=== PATIENT | female | born 1980 | race Two or more races ===

== ENCOUNTER 2024-08-02 00:52 | Inpatient (IN) | payer BC, OTHER ==
[~2024-08-02] VITALS: Ht 162.6 cm; Wt 72.6 kg
[2024-08-02] VITALS (19 sets, daily range): BP systolic 142–189; BP diastolic 56–108; TEMP 97.6; O2SAT 95–100
[2024-08-02] MEDS ORDERED: HYDROMORPHONE 1 MG/1 ML DISP.SYRIN ONE (02:15)
[2024-08-02] MEDS: HYDROMORPHONE 1 MG/1 ML DISP.SYRIN IV ONE ×2 (02:18→11:18)
[2024-08-02] MEDS: KETAMINE HCL(200MG/20ML) 10 MG/ML VIAL IV ONE (02:18)
[2024-08-02 02:32] LABS: BASOPHILS % (AUTO) 0.7 % (0.0-2.0); EOSINOPHILS # (AUTO) 0.1 K/uL (0.0-0.7); EOSINOPHILS % (AUTO) 1.1 % (0.0-6.0); HEMATOCRIT 38 % (33-45); HEMOGLOBIN 12.9 g/dL (11.5-14.8); LYMPHOCYTES # (AUTO) 0.8 K/uL (0.8-4.8); LYMPHOCYTES % (AUTO) 12.9 % (20.0-44.0); MEAN CORPUSCULAR HEMOGLOBIN 31 PG (26.0-33.0); MEAN CORPUSCULAR HGB CONC 34 g/dl (31.0-36.0); MEAN CORPUSCULAR VOLUME 93 fL (82-100); MONOCYTES # (AUTO) 0.5 K/uL (0.1-1.30); MONOCYTES % (AUTO) 7.5 % (2.0-12.0); NEUTROPHILS # (AUTO) 4.9 K/uL (1.8-8.9); NEUTROPHILS % (AUTO) 77.8 % (43.0-81.0); PLATELET COUNT (AUTO) 203 K/uL (150-450); RED BLOOD CELL COUNT(AUTO) 4.12 MIL/uL (4.0-5.2); RED CELL DISTRIBUTION WIDTH 17.6 % (11.5-15.0); WHITE BLOOD COUNT (AUTO) 6.3 K/uL (4.3-11.0)
[2024-08-02] MEDS ORDERED: CALCIUM CHLORIDE 1,000 MG/10 ML DISP.SYRIN ONE (03:20)
[2024-08-02] MEDS ORDERED: SODIUM BICARBONATE SYR 50 MEQ/50 ML DISP.SYRIN ONE (03:20)
[2024-08-02] MEDS ORDERED: DEXTROSE 50%-WATER 50 ML DISP.SYRIN ONE (03:21)
[2024-08-02] MEDS ORDERED: INSULIN REGULAR, HUMAN 100 UNIT/ML 10 ML VIAL ONE (03:21)
[2024-08-02] MEDS: SODIUM BICARBONATE SYR 50 MEQ/50 ML DISP.SYRIN IV ONE ×2 (03:23→14:42)
[2024-08-02] MEDS: CALCIUM CHLORIDE 1,000 MG/10 ML DISP.SYRIN IV ONE (03:23)
[2024-08-02] MEDS: DEXTROSE 50%-WATER 50 ML DISP.SYRIN IV ONE (03:25)
[2024-08-02] MEDS: INSULIN REGULAR, HUMAN 100 UNIT/ML 10 ML VIAL IV ONE (03:26)
[2024-08-02] MEDS: ALBUTEROL FS 2.5 MG/3 ML VIAL.NEB NEB ONE (03:30)
[2024-08-02] MEDS ORDERED: ALBUTEROL FS 2.5 MG/3 ML VIAL.NEB ONE (04:56)
[2024-08-02] MEDS ORDERED: NIFE-34 PO (05:00)
[2024-08-02] MEDS ORDERED: DICL50TA9 PO (05:00)
[2024-08-02] MEDS ORDERED: QUET50TA PO (05:00)
[2024-08-02] MEDS ORDERED: PATI8.4P PO (05:00)
[2024-08-02] MEDS ORDERED: METH-649 PO (05:00)
[2024-08-02] MEDS ORDERED: GABA-532 PO (05:00)
[2024-08-02] MEDS ORDERED: MIRT45TA83 PO (05:00)
[2024-08-02] MEDS ORDERED: SIMV-46 PO (05:00)
[2024-08-02] MEDS ORDERED: ZOLP5TAB8 PO (05:00)
[2024-08-02] MEDS ORDERED: SERT100T PO (05:00)
[2024-08-02] MEDS ORDERED: MIDO10TA PO (05:14)
[2024-08-02] MEDS ORDERED: HYDR2TAB4 PO (05:14)
[2024-08-02] MEDS ORDERED: MINO2.5T PO (05:14)
[2024-08-02] MEDS ORDERED: CARV25TA PO (05:14)
[2024-08-02] MEDS ORDERED: NALO4SPR NS (08:54)
[2024-08-02] MEDS ORDERED: CAPS42.513 TP (08:54)
[2024-08-02] MEDS ORDERED: NA P133E RC (08:54)
[2024-08-02] MEDS ORDERED: MAGN400O6 PO (08:54)
[2024-08-02] MEDS ORDERED: BISA10SU11 RC (08:54)
[2024-08-02] MEDS ORDERED: ACET325T53 PO (08:54)
[2024-08-02] MEDS ORDERED: SEVE800T8 PO (08:54)
[2024-08-02] MEDS ORDERED: NUT.237L67 PO (08:54)
[2024-08-02] MEDS ORDERED: ONDA8TAB65 PO (08:54)
[2024-08-02] MEDS ORDERED: TIZA-180 PO (08:54)
[2024-08-02] MEDS ORDERED: HYDR-3642 PO (08:54)
[2024-08-02] MEDS ORDERED: LIDO30AD10 TP (08:54)
[2024-08-02] MEDS ORDERED: POLY17PO4 PO (08:54)
[2024-08-02] MEDS ORDERED: AMIN30LI2 PO (08:54)
[2024-08-02] MEDS ORDERED: FOLI0.8T43 PO (08:54)
[2024-08-02] MEDS ORDERED: ACET-637 PO (08:54)
[2024-08-02] MEDS: NIFEDIPINE XL 60 MG TAB.ER.24 PO SCH (09:00)
[2024-08-02] MEDS: CARVEDILOL 12.5 MG TABLET PO SCH (10:30)
[2024-08-02] MEDS ORDERED: Medication Not On Formulary EA (Patiromer Calcium Sorbitex (Veltassa) 8.4 GM) PO SCH (10:30)
[2024-08-02] MEDS ORDERED: ZOLPIDEM TARTRATE 5 MG TABLET PO PRN (10:30)
[2024-08-02] MEDS ORDERED: ACETAMINOPHEN 325 MG TABLET PO PRN (10:30)
[2024-08-02] MEDS: MINOXIDIL (2.5MG) 2.5 MG TABLET PO SCH (10:30)
[2024-08-02] MEDS ORDERED: ONDANSETRON HCL/PF 4 MG/2 ML VIAL IVP PRN (10:30)
[2024-08-02] MEDS: SERTRALINE HCL 50 MG TABLET PO SCH (11:00)
[2024-08-02 11:52] LABS: POTASSIUM 8.3 mmol/L (3.5-5.1)
[2024-08-02] MEDS: GABAPENTIN 100 MG CAPSULE PO SCH (12:45)
[2024-08-02] MEDS: SODIUM ZIRCONIUM CYCLOSILICATE 10 GM POWD.PACK PO ONE (12:45)
[2024-08-02] MEDS ORDERED: DICLOFENAC SODIUM 25 MG TABLET.DR PO PRN (13:00)
[2024-08-02 13:52] LABS: CALCIUM, SERUM 8.7 mg/dL (8.5-10.1); CREATININE 7.3 mg/dL (0.6-1.3)
[2024-08-02 13:53] LABS: POTASSIUM 8.5 mmol/L (3.5-5.1)
[2024-08-02] MEDS: SEVELAMER CARBONATE 800 MG TABLET PO SCH (14:41)
[2024-08-02] MEDS: Calcium Gluconate 1GM/10ML 9.3 MEQ in IV NS 0.9% 100 ML IV STA (14:42)
[2024-08-02] MEDS: SODIUM POLYSTYRENE SULFONATE 15 G/60 ML BOTTLE PO ONE (14:43)
[2024-08-02] MEDS: METHOCARBAMOL (750MG) 750 MG TABLET PO PRN (14:43)
[2024-08-02] MEDS: DEXTROSE 50%-WATER 50 ML DISP.SYRIN IVP ONE (14:47)
[2024-08-02] MEDS: ALBUTEROL HALF STRENGTH 1.25 MG/3 ML VIAL.NEB NEB SCH (15:28)
[2024-08-02] MEDS: INSULIN REGULAR, HUMAN 100 UNIT/ML 10 ML VIAL IV STA (15:30)
[2024-08-02] MEDS: HYDROMORPHONE 1 MG/1 ML DISP.SYRIN IV STA (15:59)
[2024-08-02] MEDS ORDERED: diphenhydrAMINE HCL ELIX 25 MG/10 ML UDC PO PRN (18:00)
[2024-08-02] MEDS ORDERED: DEXTROSE 50%-WATER 50 ML DISP.SYRIN IV PRN (18:00)
[2024-08-02 18:20] LABS: CALCIUM, SERUM 8.5 mg/dL (8.5-10.1); CREATININE 5.3 mg/dL (0.6-1.3); POTASSIUM 4.7 mmol/L (3.5-5.1)
[2024-08-02] MEDS: HYDROMORPHONE HCL 2 MG TABLET PO PRN (20:35)
[2024-08-02] MEDS: QUETIAPINE FUMARATE 25 MG TABLET PO SCH (20:35)
[2024-08-02] MEDS: HEPARIN SODIUM, PORCINE 5000 UNITS/1 ML VIAL SQ SCH (20:37)
[2024-08-02] MEDS: BLOOD SUGAR DIAGNOSTIC 1 EACH STRIP IN SCH (22:09)
[2024-08-02] MEDS: MIRTAZAPINE 45 MG TABLET PO SCH (22:14)
[2024-08-03] VITALS (35 sets, daily range): BP systolic 73–162; BP diastolic 41–78; TEMP 97.5–98.3; O2SAT 86–100
[2024-08-03 05:33] LABS: BASOPHILS % (AUTO) 0.7 % (0.0-2.0); EOSINOPHILS # (AUTO) 0.1 K/uL (0.0-0.7); EOSINOPHILS % (AUTO) 1.3 % (0.0-6.0); HEMATOCRIT 31 % (33-45); HEMOGLOBIN 10.2 g/dL (11.5-14.8); LYMPHOCYTES # (AUTO) 0.7 K/uL (0.8-4.8); LYMPHOCYTES % (AUTO) 12.2 % (20.0-44.0); MEAN CORPUSCULAR HEMOGLOBIN 31 PG (26.0-33.0); MEAN CORPUSCULAR HGB CONC 33 g/dl (31.0-36.0); MEAN CORPUSCULAR VOLUME 93 fL (82-100); MONOCYTES # (AUTO) 0.5 K/uL (0.1-1.30); MONOCYTES % (AUTO) 9.4 % (2.0-12.0); NEUTROPHILS # (AUTO) 4.2 K/uL (1.8-8.9); NEUTROPHILS % (AUTO) 76.4 % (43.0-81.0); PLATELET COUNT (AUTO) 151 K/uL (150-450); RED BLOOD CELL COUNT(AUTO) 3.34 MIL/uL (4.0-5.2); RED CELL DISTRIBUTION WIDTH 17.4 % (11.5-15.0); WHITE BLOOD COUNT (AUTO) 5.5 K/uL (4.3-11.0)
[2024-08-03] MEDS: HYDROMORPHONE 1 MG/1 ML DISP.SYRIN IV PRN (05:52)
[2024-08-03 05:54] LABS: CALCIUM, SERUM 8.2 mg/dL (8.5-10.1); CREATININE 5.2 mg/dL (0.6-1.3); PHOSPHORUS 7.7 mg/dL (2.5-4.9); POTASSIUM 4.5 mmol/L (3.5-5.1)
[2024-08-03 07:07] LABS: HEPATITIS B SURFACE AB Non Reactive (.)
[2024-08-04] VITALS (10 sets, daily range): BP systolic 133–148; BP diastolic 58–68; TEMP 97.8–98.2; O2SAT 92–100
[2024-08-04 06:39] LABS: BASOPHILS % (AUTO) 0.5 % (0.0-2.0); EOSINOPHILS # (AUTO) 0.1 K/uL (0.0-0.7); EOSINOPHILS % (AUTO) 1.4 % (0.0-6.0); HEMATOCRIT 30 % (33-45); HEMOGLOBIN 10.6 g/dL (11.5-14.8); LYMPHOCYTES # (AUTO) 0.7 K/uL (0.8-4.8); LYMPHOCYTES % (AUTO) 9.5 % (20.0-44.0); MEAN CORPUSCULAR HEMOGLOBIN 32 PG (26.0-33.0); MEAN CORPUSCULAR HGB CONC 35 g/dl (31.0-36.0); MEAN CORPUSCULAR VOLUME 93 fL (82-100); MONOCYTES # (AUTO) 0.6 K/uL (0.1-1.30); MONOCYTES % (AUTO) 8.2 % (2.0-12.0); NEUTROPHILS # (AUTO) 6.2 K/uL (1.8-8.9); NEUTROPHILS % (AUTO) 80.4 % (43.0-81.0); PLATELET COUNT (AUTO) 140 K/uL (150-450); RED BLOOD CELL COUNT(AUTO) 3.29 MIL/uL (4.0-5.2); RED CELL DISTRIBUTION WIDTH 18.3 % (11.5-15.0); WHITE BLOOD COUNT (AUTO) 7.7 K/uL (4.3-11.0)
[2024-08-04 07:08] LABS: CALCIUM, SERUM 8.9 mg/dL (8.5-10.1); CREATININE 6.6 mg/dL (0.6-1.3); POTASSIUM 4.7 mmol/L (3.5-5.1)
[2024-08-04] MEDS ORDERED: IODIXANOL 320MG/ML 100 ML IV ONE (08:02)
[2024-08-04] MEDS ORDERED: LIDOCAINE HCL/MPF 1% 30 ML VIAL IJ ONE (08:02)
[2024-08-04] MEDS ORDERED: MIRTAZAPINE SOLUTAB 45 MG/UDTABLET TAB.RAPDIS ONE (22:05)
[2024-08-05] VITALS (12 sets, daily range): BP systolic 108–118; BP diastolic 68–85; TEMP 97.8–98.6; O2SAT 90–97
[2024-08-05 07:16] LABS: BASOPHILS % (AUTO) 0.6 % (0.0-2.0); EOSINOPHILS # (AUTO) 0.1 K/uL (0.0-0.7); EOSINOPHILS % (AUTO) 2.1 % (0.0-6.0); HEMATOCRIT 29 % (33-45); HEMOGLOBIN 9.9 g/dL (11.5-14.8); LYMPHOCYTES # (AUTO) 0.8 K/uL (0.8-4.8); MEAN CORPUSCULAR HEMOGLOBIN 31 PG (26.0-33.0); MEAN CORPUSCULAR HGB CONC 34 g/dl (31.0-36.0); MEAN CORPUSCULAR VOLUME 92 fL (82-100); MONOCYTES # (AUTO) 0.5 K/uL (0.1-1.30); MONOCYTES % (AUTO) 7.2 % (2.0-12.0); NEUTROPHILS # (AUTO) 5.2 K/uL (1.8-8.9); NEUTROPHILS % (AUTO) 78.1 % (43.0-81.0); PLATELET COUNT (AUTO) 125 K/uL (150-450); RED BLOOD CELL COUNT(AUTO) 3.15 MIL/uL (4.0-5.2); RED CELL DISTRIBUTION WIDTH 17.7 % (11.5-15.0); WHITE BLOOD COUNT (AUTO) 6.7 K/uL (4.3-11.0)
[2024-08-05 07:33] LABS: CALCIUM, SERUM 8.9 mg/dL (8.5-10.1); CREATININE 5.1 mg/dL (0.6-1.3); POTASSIUM 4.4 mmol/L (3.5-5.1)
[2024-08-05] MEDS: MIDODRINE HCL (5MG) 5 MG TABLET PO PRN (15:59)
[2024-08-05] MEDS ORDERED: DEXTROSE 50%-WATER 50 ML DISP.SYRIN IV PRN (23:30)
[2024-08-06] VITALS (17 sets, daily range): BP systolic 104–169; BP diastolic 62–80; TEMP 97.6–98.6; O2SAT 92–100
[2024-08-06] MEDS: BLOOD SUGAR DIAGNOSTIC 1 EACH STRIP VI SCH (07:37)
[2024-08-06] MEDS: INSULIN REGULAR, HUMAN 100 UNIT/ML 3 ML VIAL SQ PRN (07:38)
[2024-08-06] MEDS ORDERED: MINOXIDIL (2.5MG) 2.5 MG TABLET PO PRN (09:30)
[2024-08-06] MEDS: *INSULIN REGULAR(HUMULIN R)HUM 100 UNIT/ML VIAL SQ PRN (21:57)
[2024-08-07] VITALS (13 sets, daily range): BP systolic 132–165; BP diastolic 68–71; TEMP 97.9–98.2; O2SAT 90–99
[2024-08-07] MEDS: CLONIDINE HCL 0.1 MG TABLET PO PRN (04:45)
[2024-08-07 07:55] LABS: ALBUMIN 3.1 g/dL (3.4-5.0); CALCIUM, SERUM 8.7 mg/dL (8.5-10.1); CREATININE 5.2 mg/dL (0.6-1.3); TOTAL PROTEIN, SERUM 7.1 g/dL (6.4-8.2)
[2024-08-07] MEDS ORDERED: HEMOSTATIC MATRIX 8 ML 1 EACH PAD MC ONE (11:40)
[2024-08-07] MEDS ORDERED: IOHEXOL 50 ML IV ONE (11:40)
[2024-08-07] MEDS ORDERED: CELLULOSE,OXIDIZED 1 EA PACK MC ONE (11:40)
[2024-08-07] MEDS ORDERED: ROPIVACAINE HCL 0.5% 5 MG/ML 30ML VIAL ONE (11:41)
[2024-08-07] MEDS ORDERED: HEPARIN SODIUM, PORCINE 1,000 UNIT/ML VIAL ONE (11:41)
[2024-08-07] MEDS ORDERED: CELLULOSE,OXIDIZED 1 EACH EACH MC ONE (11:41)
[2024-08-07] MEDS ORDERED: CELLULOSE,OXIDIZED 1 PKT EACH MC ONE (11:41)
[2024-08-07] MEDS ORDERED: LIDOCAINE HCL/MPF 1% 30 ML VIAL IJ ONE (11:41)
[2024-08-07] MEDS ORDERED: ROCURONIUM BROMIDE 50 MG/5 ML ONE (12:02)
[2024-08-07] MEDS ORDERED: FENTANYL PF 250MCG/5ML AMPUL ONE (12:02)
[2024-08-07] MEDS: HYDROMORPHONE 1 MG/1 ML DISP.SYRIN IV PRN (18:19)
[2024-08-07] MEDS ORDERED: NEPRO VAN 237 ML CAN PO PRN (18:30)
[2024-08-07] MEDS ORDERED: CEFAZOLIN 1 GM in IV D5W 50 ML IV SCH (20:45)
[2024-08-07] MEDS: ANCEF 1 GM/50 ML D5W IV SCH (20:55)
[2024-08-07] MEDS: MIRTAZAPINE 15 MG TABLET ONE (22:28)
[2024-08-08] VITALS (13 sets, daily range): BP systolic 129–149; BP diastolic 56–70; TEMP 97–98.6; O2SAT 93–100
[2024-08-08] MEDS: HEPARIN SODIUM, PORCINE 5000 UNITS/1 ML VIAL SQ SCH (08:57)
[2024-08-08] MEDS: HYDROMORPHONE 1 MG/1 ML DISP.SYRIN IV PRN (10:03)
[2024-08-08] MEDS: oxyCODONE/APAP (5/325 MG) 1 UDTAB TABLET PO PRN (14:57)
[2024-08-08] MEDS: ONDANSETRON HCL/PF 4 MG/2 ML VIAL IV PRN (17:09)
[2024-08-08] MEDS: HYDROMORPHONE HCL 2 MG TABLET PO PRN (20:41)
[2024-08-09 00:13] VITALS: O2SAT 97
[2024-08-09 00:28] VITALS: O2SAT 100
[2024-08-09 04:00] VITALS: BP 130/94; TEMP 98.4; O2SAT 95
[2024-08-09 07:56] LABS: BASOPHILS % (AUTO) 0.5 % (0.0-2.0); EOSINOPHILS # (AUTO) 0.2 K/uL (0.0-0.7); EOSINOPHILS % (AUTO) 2.8 % (0.0-6.0); HEMATOCRIT 27 % (33-45); HEMOGLOBIN 8.8 g/dL (11.5-14.8); LYMPHOCYTES # (AUTO) 0.7 K/uL (0.8-4.8); MEAN CORPUSCULAR HEMOGLOBIN 31 PG (26.0-33.0); MEAN CORPUSCULAR HGB CONC 33 g/dl (31.0-36.0); MEAN CORPUSCULAR VOLUME 94 fL (82-100); MONOCYTES # (AUTO) 0.6 K/uL (0.1-1.30); MONOCYTES % (AUTO) 9.2 % (2.0-12.0); NEUTROPHILS # (AUTO) 4.9 K/uL (1.8-8.9); NEUTROPHILS % (AUTO) 76.5 % (43.0-81.0); PLATELET COUNT (AUTO) 90 K/uL (150-450); RED BLOOD CELL COUNT(AUTO) 2.82 MIL/uL (4.0-5.2); RED CELL DISTRIBUTION WIDTH 17.5 % (11.5-15.0); WHITE BLOOD COUNT (AUTO) 6.4 K/uL (4.3-11.0)
[2024-08-09 08:45] LABS: CALCIUM, SERUM 8.7 mg/dL (8.5-10.1); CREATININE 5.8 mg/dL (0.6-1.3); POTASSIUM 4.8 mmol/L (3.5-5.1)
[2024-08-09 10:28] LABS: EOSINOPHILS % (MANUAL) 4 % (0-4); LYMPHOCYTES % (MANUAL) 18 % (16-48); MONOCYTES % (MANUAL) 4 % (0-11.0); NEUTROPHILS % (MANUAL) 74 (42-76)
[2024-08-09 10:29] LABS: ANISOCYTOSIS 1+; OVALOCYTES 1+; PLATELET ESTIMATE DECREASED
[2024-08-09 12:00] VITALS: BP 137/55; TEMP 98.2; O2SAT 98
[2024-08-09 16:53] VITALS: BP 138/68
== END 2024-08-09 17:50 | DRG 252 ==
LOC: ER 00:55 → ICU 07:28 → TELE1 08:33 → ICU 14:10 → MEDSG1 08-03 11:31
PROVIDERS: ADMIT Internal Medicine; ATTEND Internal Medicine
PROC: 5A1D70Z Performance of Urinary Filtration, Intermittent, Less than 6 Hours Per Day (ICD-10-PCS; principal; 2024-08-02)
PROC: 06HY33Z Insertion of Infusion Device into Lower Vein, Percutaneous Approach (ICD-10-PCS; 2024-08-02)
PROC: 05763ZZ Dilation of Left Subclavian Vein, Percutaneous Approach (ICD-10-PCS; 2024-08-04)
PROC: 05783ZZ Dilation of Left Axillary Vein, Percutaneous Approach (ICD-10-PCS; 2024-08-04)
PROC: B51WYZZ Fluoroscopy of Dialysis Shunt/Fistula using Other Contrast (ICD-10-PCS; 2024-08-04)
PROC: B51WYZZ Fluoroscopy of Dialysis Shunt/Fistula using Other Contrast (ICD-10-PCS; 2024-08-04)
PROC: B51 Imaging, Veins, Fluoroscopy (ICD-10-PCS; 2024-08-04)
PROC: 30233N1 Transfusion of Nonautologous Red Blood Cells into Peripheral Vein, Percutaneous Approach (ICD-10-PCS; 2024-08-06)
PROC: 03L80ZZ Occlusion of Left Brachial Artery, Open Approach (ICD-10-PCS; 2024-08-07)
PROC: 05WY0JZ Revision of Synthetic Substitute in Upper Vein, Open Approach (ICD-10-PCS; 2024-08-07)
PROC: 03170JD Bypass Right Brachial Artery to Upper Arm Vein with Synthetic Substitute, Open Approach (ICD-10-PCS; 2024-08-07)
PROC: 0JH63XZ Insertion of Tunneled Vascular Access Device into Chest Subcutaneous Tissue and Fascia, Percutaneous Approach (ICD-10-PCS; 2024-08-07)
PROC: 05HN33Z Insertion of Infusion Device into Left Internal Jugular Vein, Percutaneous Approach (ICD-10-PCS; 2024-08-07)
PROC: B514YZA Fluoroscopy of Left Jugular Veins using Other Contrast, Guidance (ICD-10-PCS; 2024-08-07)
PROC: B513YZZ Fluoroscopy of Right Jugular Veins using Other Contrast (ICD-10-PCS; 2024-08-07)
DX: T82.858A Stenosis of other vascular prosthetic devices, implants and grafts, initial encounter (principal); N18.6 End stage renal disease; E87.1 Hypo-osmolality and hyponatremia; I12.0 Hypertensive chronic kidney disease with stage 5 chronic kidney disease or end stage renal disease; E87.5 Hyperkalemia; G89.29 Other chronic pain; Y92.9 Unspecified place or not applicable; Y83.2 Surgical operation with anastomosis, bypass or graft as the cause of abnormal reaction of the patient, or of later complication, without mention of misadventure at the time of the procedure; E11.22 Type 2 diabetes mellitus with diabetic chronic kidney disease; E78.5 Hyperlipidemia, unspecified; E87.70 Fluid overload, unspecified; M89.8X9 Other specified disorders of bone, unspecified site; E11.43 Type 2 diabetes mellitus with diabetic autonomic (poly)neuropathy; K31.84 Gastroparesis; Z98.61 Coronary angioplasty status; Z99.2 Dependence on renal dialysis; G47.00 Insomnia, unspecified; Z91.048 Other nonmedicinal substance allergy status; Z88.8 Allergy status to other drugs, medicaments and biological substances; Z79.899 Other long term (current) drug therapy; F32.A Depression, unspecified; D63.1 Anemia in chronic kidney disease; Z87.828 Personal history of other (healed) physical injury and trauma
CPT/HCPCS: 36415; 71045-TC; 80048-TC; 80053-TC; 82962-TC; 84100-TC; 84702-TC; 85025-TC; 86706; 86850-TC; 87081-TC; 87340; 90935-TC; 93930-TC; 93971-TC; 94761-TC; 94762-TC; 94799-TC; 97110-TC; 97112-TC; 97530-TC; A6253; A6403; C1750; C1757; C1769; C1894; G0378; J0610; J0690; J1100; J1171; J1644; J1815; J2405; J2704; J2795; J3010; J3490; J7030; J7050; J7060; Q9967